=== PATIENT | male | born 1995 | race Caucasian/White ===

== ENCOUNTER 2019-05-12 18:12 | Emergency (ER) | payer OTHER, SELFPAY ==
[2019-05-12 18:24] VITALS: BP 148/81; PULSE 116; RESP 16; TEMP 39.3; O2SAT 98
--- NOTE | 2019-05-12 18:42 | ED.GENADULT ---
HPI - General Adult General Chief complaint: Upper Respiratory Infection Stated complaint: Fever/Headache/Dizzy/L/leg pain/Chills/Cough Time Seen by Provider: 05/12/19 18:45 Source: patient and RN notes reviewed Mode of arrival: ambulatory Limitations: no limitations History of Present Illness HPI narrative: 23-year-old male presents with concern for fever 102.7, body aches, headache, dizziness, nonproductive cough that started yesterday. Reports is been taking DayQuil, NyQuil, has not taken any since 1:00 this morning MD complaint: Fever Related Data Home Medications Medication Instructions Recorded Confirmed Probiotic + Enzyme DAILY 05/12/19 Ultimate Probitoic 14 DAILY 05/12/19 atorvastatin 10 mg PO DAILY 05/12/19 05/12/19 fenofibrate nanocrystallized 145 mg PO DAILY 05/12/19 05/12/19 fluoxetine [Prozac] 40 mg PO DAILY 05/12/19 05/12/19 icosapent ethyl [Vascepa] 2 g PO BID 05/12/19 05/12/19 loratadine [Claritin] 10 mg PO DAILY 05/12/19 05/12/19 peppermint spirit 3 drp PO TID 05/12/19 05/12/19 Allergies Allergy/AdvReac Type Severity Reaction Status Date / Time No Known Allergies Allergy Verified 05/12/19 18:52 Review of Systems Review of Systems: Narrative: CONSTITUTIONAL: Reports malaise, chills, sweats, and fever. EYES: Denies visual changes, redness, or discharge. ENT: Reports rhinorrhea, congestion, sore throat. Denies sinus pain, otalgia. CARDIOVASCULAR: Denies chest pain, palpitations, or edema. RESPIRATORY: Reports cough. Denies dyspnea. GASTROINTESTINAL: Denies abdominal pain, nausea, vomiting, diarrhea SKIN: Denies rash or itching. MUSCULOSKELETAL: Denies myalgia. NEUROLOGIC: Denies headache. Reports dizziness All systems reviewed & are unremarkable except as noted in HPI and below PMFSH Family History Family History (Updated 01/13/18 @ 08:49 by DOCTOR UNKNOWN) Father Depression Family history of elevated blood lipids Grandparent Depression Family history of elevated blood lipids Family history of coronary artery disease Sibling Depression Mother Family history of bipolar disorder Family history of malignant neoplasm of breast in first degree relative Social History Social History Smoking status: Never smoker Alcohol intake: current Gender identity (if verbalized by the patient): Male Comments At time of signature, agree with nursing past medical, surgical, social and family history. There is no relevant family history pertinent to the presenting complaint Exam Narrative: Exam Narrative: GENERAL: Well-appearing, well-nourished, and in no acute distress. HEAD: Normocephalic EYES: PERRLA, conjunctivae clear ENT: Nares clear, turbinates edematous and erythematous, clear discharge. Mucous membranes moist. TM pearly fitzgerald with dull light reflex bilaterally; no tragal tenderness. Oropharynx erythematous without lesions. Tonsils not enlarged and without exudate, no drooling, no hoarseness, no trismus. NECK: Supple. No lymphadenopathy CHEST: Clear to auscultation, breath sounds equal. No wheezing, rhonchi, rales, or stridor. No respiratory distress, speaks in full sentences. HEART: Regular rate and rhythm. No murmur heard. Normal peripheral pulses. SKIN: Warm, dry, no rash. NEURO: Alert and oriented x3. No focal deficits PSYCH: Normal mood and affect Course Course Emergency Course: Discussed antiviral medication options with patient, patient declines at this time. Patient is aware of diagnosis, understands and agrees to treatment plan. Anticipatory guidance given. Patient agrees to follow-up as directed and is aware of reasons to seek care at the emergency department. Portions of this record may have been created with voice recognition software Vital Signs Vital signs: Vital Signs Temperature 102.7 F H 05/12/19 18:24 Pulse Rate 116 H 05/12/19 18:24 Respiratory Rate 16 05/12/19 18:24 Blood Pressure 148/81 H 05/12/19 18:24 Pulse Oximetry 98 05/12/19 18:24 Te
== END 2019-05-12 19:00 | disposition home or self-care (01) ==
PROVIDERS: Emergency Provider Nurse Practitioner
DX: J10.1 Influenza due to other identified influenza virus with other respiratory manifestations (principal)
CPT/HCPCS: 87804; 99213; G0463

== ENCOUNTER 2022-02-26 00:19 | Day surgery (SDC) | payer OTHER, SELFPAY ==
[2022-02-13 15:22] VITALS: BMI 31.1
--- NOTE | 2022-02-26 10:41 | WPDANESEPPF ---
Anes - Initial Pre Proc Eval Procedure: Operation Date: 02/26/22 13:45 Proposed Procedures p Esophagogastroduodenoscopy EGD - Mejia Christy MD Date/Time: 02/26/22 10:41 Surgeon: Mejia Christy MD Pre Op Diagnosis: dysphasia Patient Data Age: 26 Gender: M Height: 1.85 m Weight: 107 kg Allergies Allergy/AdvReac Type Severity Reaction Status Date / Time No Known Allergies Allergy Verified 02/13/22 15:22 Home Medications Medication Instructions Recorded Confirmed Type cholecalciferol (vitamin D3) 250 250 mcg PO DAILY 10/14/20 02/13/22 History mcg (10,000 unit) capsule fenofibrate nanocrystallized 145 145 mg PO DAILY #90 tabs 12/10/21 02/13/22 Rx mg tablet simvastatin 20 mg tablet 20 mg PO DAILY #90 tabs 12/19/21 02/13/22 Rx bupropion HCl 150 mg 24 hr tablet, 150 mg PO QAM #90 tabs 01/11/22 02/13/22 Rx extended release bupropion HCl 300 mg 24 hr tablet, 300 mg PO QAM #90 tabs 01/11/22 02/13/22 Rx extended release icosapent ethyl 1 gram capsule 2 g PO BID #360 caps 02/06/22 02/13/22 Rx fexofenadine 180 mg tablet 180 mg PO DAILY 02/13/22 02/13/22 History hydroxyzine HCl 50 mg tablet 50 mg PO BID PRN Anxiety 02/13/22 02/13/22 History melatonin 5 mg capsule 5 mg PO HS PRN Insomnia 02/13/22 02/13/22 History Patient hx anesthesia problems: none Family hx anesthesia problems: none Results Review: All pre-operative results and documents have been reviewed as part of the pre-operative evaluation. [facility], [facility] Past Medical History Medical History (Updated 02/26/22 @ 10:42 by Ian Bhat MD) Depression Hyperlipidemia Obesity Family History Family History Father Depression Family history of elevated blood lipids Grandparent Depression Family history of elevated blood lipids Family history of coronary artery disease Sibling Depression Mother Family history of bipolar disorder Family history of malignant neoplasm of breast in first degree relative Social History Social History (Updated 01/29/22 @ 14:47 by Renee Harris [facility]) Smoking status: Never smoker Alcohol intake: current Substance use: never Substance use type: does not use Lack of Transportation: No Lack of Food: Never True Current Housing: I Have Housing Concerned About Future Housing: No Difficulty Paying Gas/Electric Bills: No Difficulty Paying for Meds: No Currently Unemployed: No Education: Trade/Vocational Certificate Difficulty w/ Childcare or Family Care: No Living arrangements: with family Gender identity (if verbalized by the patient): Male Spiritual care concerns: No Anes - Eval Final PreProcedure Day of Procedure 02/26/22 10:41 Patient weight: obese Heart: regular rate and rhythm Lungs: clear to auscultation and normal air movement Airway: Mallampati scale class II Neurological: alert and oriented Last oral intake: >/= 8 hours ASA classification: II Emergent: no Anesthetic plan: proceed Anesthesia type and monitoring: general GIVS Results Review: All pre-operative results and documents have been reviewed as part of the pre-operative evaluation. Informed Consent: The patient's anesthetic plan and its attendant risks and benefits were discussed with the patient/family/POA. Questions were solicited and answers provided to the satisfaction of the patient/family/POA.
[2022-02-26 12:20] VITALS: BP 162/94; PULSE 90; RESP 20; TEMP 36.2; O2SAT 100; BMI 31.2
--- NOTE | 2022-02-26 12:42 | PM.HPGS ---
History of Present Illness History of Present Illness Consent: Risks, benefits, and alternatives have been discussed and questions answered. Patient agrees to proceed with procedure. Chief complaint: dysphasia Narrative: Chele Ho is a 26 year old male with progressive dysphagia after eating solids over the years, never had egd and he is not taking ppi. Review of Systems Constitutional: Constitutional: Denies headache(s) and Denies weakness Eyes: Eyes: Denies blurry vision ENT: Reports Normal hearing present, Denies headache(s) and Denies neck pain Cardiovascular: Cardiovascular: Denies chest pain and Denies dyspnea Respiratory: Respiratory: Denies dyspnea Gastrointestinal: Gastrointestinal: Reports no additional gastrointestinal complaints Genitourinary: Genitourinary: Denies dysuria Musculoskeletal: Musculoskeletal: Denies neck pain Integumentary/Breasts: Skin/Breast: Denies dry skin Neurologic: Reports Normal hearing present, Denies headache(s) and Denies weakness Psychiatric: Psychiatric: Denies anxiety Endocrine: Endocrine: Denies change in body appearance Hematologic/Lymphatic: Hematologic/Lymphatic: Denies easy bleeding Allergic/Immunologic: Allergic/Immunologic: Denies urticaria PMFSH Past Medical History Medical History (Updated 02/26/22 @ 10:42 by Ian Bhat MD) Depression Hyperlipidemia Obesity Family History Family History Father Depression Family history of elevated blood lipids Grandparent Depression Family history of elevated blood lipids Family history of coronary artery disease Sibling Depression Mother Family history of bipolar disorder Family history of malignant neoplasm of breast in first degree relative Social History Social History (Updated 01/29/22 @ 14:47 by Renee Harris [facility]) Smoking status: Never smoker Alcohol intake: current Substance use: never Substance use type: does not use Lack of Transportation: No Lack of Food: Never True Current Housing: I Have Housing Concerned About Future Housing: No Difficulty Paying Gas/Electric Bills: No Difficulty Paying for Meds: No Currently Unemployed: No Education: Trade/Vocational Certificate Difficulty w/ Childcare or Family Care: No Living arrangements: with family Gender identity (if verbalized by the patient): Male Spiritual care concerns: No Meds Home Medications and Allergies Home Medications Medication Instructions Recorded Confirmed Type cholecalciferol (vitamin D3) 250 250 mcg PO DAILY 10/14/20 02/26/22 History mcg (10,000 unit) capsule fenofibrate nanocrystallized 145 145 mg PO DAILY #90 tabs 12/10/21 02/26/22 Rx mg tablet simvastatin 20 mg tablet 20 mg PO DAILY #90 tabs 12/19/21 02/26/22 Rx bupropion HCl 150 mg 24 hr tablet, 150 mg PO QAM #90 tabs 01/11/22 02/26/22 Rx extended release bupropion HCl 300 mg 24 hr tablet, 300 mg PO QAM #90 tabs 01/11/22 02/26/22 Rx extended release icosapent ethyl 1 gram capsule 2 g PO BID #360 caps 02/06/22 02/26/22 Rx fexofenadine 180 mg tablet 180 mg PO DAILY 02/13/22 02/26/22 History hydroxyzine HCl 50 mg tablet 50 mg PO BID PRN Anxiety 02/13/22 02/26/22 History melatonin 5 mg capsule 5 mg PO HS PRN Insomnia 02/13/22 02/26/22 History Allergies Allergy/AdvReac Type Severity Reaction Status Date / Time No Known Allergies Allergy Verified 02/26/22 12:28 Vital Signs Vital Signs - 24 hr 02/26/22 12:20 Temperature 97.1 F L Pulse Rate 90 Respiratory Rate 20 Blood Pressure 162/94 H Pulse Oximetry 100 Oxygen Delivery Room Air Exam Const: General: comfortable and no acute distress HENMT: Face/Nose/Sinus: Normal nares present Eyes: General: appearance normal, both eyes and all related structures Neck: Neck: no JVD Resp: Auscultation: clear to auscultation bilaterally Cardio: Rate: regular rate Rhythm: regular rhythm GI
[2022-02-26] MEDS: LACTATED RINGERS 1,000 ML 150 ML IV CONT (12:43)
[2022-02-26 12:56] VITALS: BP 123/81; PULSE 95; RESP 25; O2SAT 98
[2022-02-26 13:06] VITALS: BP 114/80; PULSE 86; RESP 17; O2SAT 99
[2022-02-26 13:16] VITALS: BP 115/83; PULSE 84; RESP 19; O2SAT 98
== END 2022-02-26 13:31 | disposition home or self-care (01) ==
PROVIDERS: PCP Family Medicine; Visit Provider Internal Medicine Gastroenterology
PROC: 0DJ08ZZ Inspection of Upper Intestinal Tract, Via Natural or Artificial Opening Endoscopic (ICD-10-PCS; CPT 43235; principal; 2022-02-26 13:45)
DX: R13.10 Dysphagia, unspecified (principal); K21.00 Gastro-esophageal reflux disease with esophagitis, without bleeding; E78.5 Hyperlipidemia, unspecified; F32.A Depression, unspecified; E66.9 Obesity, unspecified; Z68.31 Body mass index [BMI] 31.0-31.9, adult
CPT/HCPCS: 43239; 88305; J2704; J7120

== ENCOUNTER 2022-05-04 16:01 | Outpatient (CLI) | payer OTHER, SELFPAY ==
[2022-05-04 22:13] LABS: Kit Draw Collected
== END 2022-05-04 16:02 | disposition home or self-care (01) ==
LOC: ANHGOSHLAB 16:03
PROVIDERS: PCP Family Medicine; Visit Provider Family Medicine
DX: Z51.81 Encounter for therapeutic drug level monitoring (principal); Z79.899 Other long term (current) drug therapy; E78.5 Hyperlipidemia, unspecified; F52.4 Premature ejaculation; R53.83 Other fatigue; F32.9 Major depressive disorder, single episode, unspecified
CPT/HCPCS: 36415

== ENCOUNTER 2022-09-07 15:40 | Outpatient (CLI) | payer OTHER, SELFPAY ==
[2022-09-10 12:42] LABS: Kit Draw Collected
== END 2022-09-07 15:41 | disposition home or self-care (01) ==
LOC: ANHGOSHLAB 15:41
PROVIDERS: PCP Family Medicine; Visit Provider Family Medicine
DX: E78.5 Hyperlipidemia, unspecified (principal); E66.9 Obesity, unspecified; Z79.899 Other long term (current) drug therapy
CPT/HCPCS: 36415